=== PATIENT | male | born 1975 | race Asian ===

== ENCOUNTER 2018-08-03 15:42 | Outpatient (CLI) | payer OTHER ==
--- NOTE | 2018-08-03 16:09 | RAD ---
CHEST ONE VIEW: History: TB screening. FINDINGS: No comparison. Cardiac silhouette is magnified by projection. Pulmonary vasculature is unremarkable. Mediastinum is midline. No lobar consolidation or evidence of pneumothorax. IMPRESSION: No active cardiopulmonary abnormalities are demonstrated. No evidence of active tuberculosis disease. POS: [facility]
== END 2018-08-03 15:43 | disposition home or self-care (01) ==
LOC: BICRAD 15:42
PROVIDERS: ATTEND Internal Medicine Pulmonary Disease
DX: Z11.1 Encounter for screening for respiratory tuberculosis (principal)
CPT/HCPCS: 71045